=== PATIENT | female | born 1945 | race Caucasian/White ===

== ENCOUNTER 2019-02-24 15:30 | Emergency (ER) | payer MEDICARE, OTHER ==
--- NOTE | 2019-02-24 15:49 | EDM.PDOC ---
ED HPI GENERAL MEDICAL PROBLEM - General Chief Complaint: General Stated Complaint: chest pain Time Seen by Provider: 02/24/19 15:45 Source of Information: Reports: Patient, Old Records, RN History Limitations: Reports: No Limitations - History of Present Illness INITIAL COMMENTS - FREE TEXT/NARRATIVE: 73 yo female presents with a 2 d hx of sternal pain. Sx's worse with movement of her torso, deep breathing, or coughing. No fever, calf pain, nausea, injury history, diaphoresis or SOB. Took ibuprofen 400 mg about 2 hrs before arrival. Onset: Gradual Onset Date: 02/22/19 Duration: Day(s):, Constant Location: Reports: Chest Quality: Reports: Dull Severity: Moderate Improves with: Reports: Rest Worsens with: Reports: Movement Context: Reports: Other (see HPI) Associated Symptoms: Reports: Chest Pain. 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 - Related Data Allergies Allergy/AdvReac Type Severity Reaction Status Date / Time celecoxib [From Celebrex] Allergy Swelling Verified 02/24/19 16:12 codeine Allergy Nausea Verified 02/24/19 16:12 rofecoxib [From Vioxx] Allergy Swelling Verified 02/24/19 16:12 Home Meds: Home Meds Atenolol [Tenormin] 02/24/19 [History] Escitalopram [Lexapro] 02/24/19 [History] Lisinopril 02/24/19 [History] Potassium Chloride 02/24/19 [History] amLODIPine [Norvasc] 02/24/19 [History] hydroCHLOROthiazide [Hydrochlorothiazide] 02/24/19 [History] ED ROS GENERAL - Review of Systems Review Of Systems: See Below Constitutional: Reports: No Symptoms HEENT: Reports: No Symptoms Respiratory: Reports: No Symptoms Cardiovascular: Reports: Chest Pain (sternal). Denies: Dyspnea on Exertion, Edema, Orthopnea, Palpitations, Syncope Endocrine: Reports: No Symptoms GI/Abdominal: Reports: No Symptoms : Reports: No Symptoms Musculoskeletal: Reports: No Symptoms Skin: Reports: No Symptoms Neurological: Reports: No Symptoms Psychiatric: Reports: No Symptoms ED EXAM, GENERAL - Physical Exam Exam: See Below Exam Limited By: No Limitations General Appearance: Alert, WD/WN, No Apparent Distress Eye Exam: Bilateral Eye: Normal Inspection Ears: Normal External Exam, Normal Canal, Hearing Grossly Normal, Normal TMs Ear Exam: Bilateral Ear: Auricle Normal, Canal Normal Nose: Normal Inspection, No Blood Throat/Mouth: Normal Inspection, Normal Lips, Normal Oropharynx, Normal Voice, No Airway Compromise Head: Atraumatic, Normocephalic Neck: Normal Inspection Respiratory/Chest: No Respiratory Distress, Lungs Clear, Normal Breath Sounds, No Accessory Muscle Use, Other (parasternal tenderness over costochondral jxn bilat). No: Chest Non-Tender Cardiovascular: Regular Rate, Rhythm, No Edema GI/Abdominal: Normal Bowel Sounds, Soft, Non-Tender, No Distention Back Exam: Normal Inspection. No: CVA Tenderness (R), CVA Tenderness (L) Extremities: Normal Inspection, Normal Range of Motion, Non-Tender, No Pedal Edema Neurological: Alert, Oriented, CN II-XII Intact, Normal Cognition, No Motor/ Sensory Deficits Psychiatric: Normal Affect, Normal Mood Skin Exam: Warm, Dry, Intact, Normal Color, No Rash EKG INTERPRETATION EKG Date: 02/24/19 Time: 15:40 Rhythm: NSR Rate (Beats/Min): 58 [place]: Normal P-Wave: Present QRS: Normal ST-T: Normal QT: Normal Comparison: NA - No Prior EKG Course - Vital Signs Last Recorded V/S: Last Vital Signs Temp 36.5 C 02/24/19 16:06 Pulse 52 L 02/24/19 16:27 Resp 16 02/24/19 16:06 BP 139/82 02/24/19 16:27 Pulse Ox 94 L 02/24/19 16:27 - Orders/Labs/Meds Orders: Active Orders 24 hr Category Date Time Status Cardiac Monitoring [RC] .As Directed Care 02/24/19 15:32 Active EKG Documentation Completion [RC] ASDIRECTED Care 02/24/19 15:32 Active EKG 12 Lead [EK] Routine Ther 02/24/19 15:32 Ordered Labs: Laboratory Tests 02/24/19 Range/Units 16:14 Troponin I 0.035 (0.000-0.056) ng/mL Meds: Medications Discontinued Medications Generic Name Dose Route Start Last Admin Trade Name Freq PRN Reason Stop Dose Admin Acetaminophen 1,000 mg 02/24/19 15:58 02/24/19 16:09 Tylenol Extra Strength PO 02/24/19 15:59 1,000 mg ONETIME ONE Administration Departure - Departure Time of Disposition: 16:45 Disposition: Home, Self-Care 01 Condition: Good Clinical Impression: Costochondritis - Discharge Information *PRESCRIPTION DRUG MONITORING PROGRAM REVIEWED*: No *COPY OF PRESCRIPTION DRUG MONITORING REPORT IN PATIENT JENNY: No Referrals: Radha Posada MD [Primary Care Provider] - Forms: ED Department Discharge Additional Instructions: Ibuprofen 400 mg every 6 hrs with food as needed. Add acetaminophen up to 1000 mg every 6 hrs for more pain relief. Recheck later in the week with your provider. Return if worse or if SOB, nausea, or diaphoresis occurs, or radiation to your jaw or shoulders. - My Orders Last 24 Hours: My Active Orders 02/24/19 15:32 Cardiac Monitoring [RC] .As Directed EKG Documentation Completion [RC] ASDIRECTED EKG 12 Lead [EK] Routine - Assessment/Plan Last 24 Hours: My Active Orders 02/24/19 15:32 Cardiac Monitoring [RC] .As Directed EKG Documentation Completion [RC] ASDIRECTED EKG 12 Lead [EK] Routine
[2019-02-24] MEDS ORDERED: Acetaminophen 500 MG Tab PO ONE (15:58)
== END 2019-02-24 17:06 | disposition home or self-care (01) ==
LOC: JP.ED 15:30
DX: M94.0 Chondrocostal junction syndrome [Tietze] (principal); Z88.5 Allergy status to narcotic agent; Z79.899 Other long term (current) drug therapy
CPT/HCPCS: 36415; 84484; 93005; 99284; A9270; 93010; 99283

== ENCOUNTER 2021-12-03 21:54 | Inpatient (IN) | payer MEDICARE, OTHER ==
[2021-12-04] MEDS ORDERED: Ondansetron 4 MG/2 ML SDV IVPUSH ONE (00:58)
[2021-12-04] MEDS ORDERED: Sodium Chloride 0.9% 10 ML Syringe FLUSH PRN (00:58)
[2021-12-04] MEDS ORDERED: Sodium Chloride 0.9% 1,000 ML IV SCH (02:00)
[2021-12-04] MEDS ORDERED: metroNIDAZOLE/Normal Saline 500 MG in Premix Bag 1 BAG IV SCH (02:00)
[2021-12-04] MEDS ORDERED: Ciprofloxacin in D5W 400 MG in Premix Bag 1 BAG IV SCH ×2 (02:00)
[2021-12-04] MEDS ORDERED: Acetaminophen 325 MG Tab PO ONE (02:10)
[2021-12-04] MEDS ORDERED: diphenhydrAMINE 50 MG/ML SDV IVPUSH ONE (02:29)
[2021-12-04] MEDS ORDERED: Apixaban 5 MG Tab PO ONE (02:46)
[2021-12-04] MEDS ORDERED: Atenolol 25 MG Tab PO ONE (02:46)
[2021-12-04 07:04] LABS: CORONAVIRUS COVID-19 NAA NEGATIVE (NEGATIVE)
[2021-12-04] MEDS ORDERED: Acetaminophen 325 MG Tab PO PRN (08:23)
[2021-12-04] MEDS ORDERED: Magnesium Hydroxide 400 MG/5 ML Susp 30 ML Cup PO PRN (08:23)
[2021-12-04] MEDS ORDERED: Acetaminophen/HYDROcodone 325-5 MG Tab PO PRN (08:23)
[2021-12-04] MEDS ORDERED: Temazepam 15 MG Cap PO PRN (08:23)
[2021-12-04] MEDS ORDERED: Ondansetron 4 MG Tab.DIS PO PRN (08:23)
[2021-12-04] MEDS: metroNIDAZOLE/Normal Saline 500 MG in Premix Bag 1 BAG IV SCH ×2 (09:59→18:10)
[2021-12-04] MEDS: Sodium Chloride 0.9% 1,000 ML IV SCH ×2 (11:15→19:57)
[2021-12-04] MEDS: Potassium Chloride 20 MEQ Tab.ER PO SCH ×2 (11:15→17:22)
[2021-12-04] MEDS: Escitalopram 10 MG Tab PO SCH (13:41)
[2021-12-04] MEDS ORDERED: Non-Formulary Medication 1 Each (Melatonin [Melatonin] 10 MG Cap) PO PRN (14:15)
[2021-12-04] MEDS ORDERED: Melatonin 3 MG Tab PO PRN (14:58)
[2021-12-04] MEDS: amLODIPine 5 MG Tab PO SCH (15:19)
[2021-12-04] MEDS: Lisinopril 20 MG Tab PO SCH (15:19)
[2021-12-04] MEDS ORDERED: ATENOLOL 100 MG PO SCH (21:00)
[2021-12-04] MEDS ORDERED: Apixaban 5 MG Tab PO SCH (21:00)
[2021-12-04] MEDS ORDERED: atorvaSTATin 20 MG Tab PO SCH (21:00)
[2021-12-04] MEDS ORDERED: Atenolol 25 MG Tab PO SCH (21:00)
[2021-12-04] MEDS ORDERED: Non-Formulary Medication 1 Each (Simvastatin [Simvastatin] 40 MG Tablet) PO SCH (21:00)
[2021-12-05] MEDS: metroNIDAZOLE/Normal Saline 500 MG in Premix Bag 1 BAG IV SCH ×2 (02:27→09:28)
[2021-12-05] MEDS: Lisinopril 20 MG Tab PO SCH (08:09)
[2021-12-05] MEDS: Potassium Chloride 20 MEQ Tab.ER PO SCH (08:10)
[2021-12-05] MEDS: Escitalopram 10 MG Tab PO SCH (08:10)
[2021-12-05] MEDS: amLODIPine 5 MG Tab PO SCH (08:10)
[2021-12-05] MEDS ORDERED: Hydrochlorothiazide 25 MG Tab PO SCH (09:00)
[2021-12-05] MEDS ORDERED: Escitalopram 10 MG Tab PO SCH (09:00)
[2021-12-05] MEDS ORDERED: Aspirin 81 MG Tab.EC PO SCH (09:00)
[2021-12-08 01:08] LABS: ADENOVIRUS F 40/41 Not Detected (Not Detected); ASTROVIRUS Not Detected (Not Detected); C DIFFICILE TOXIN A/B Not Detected (Not Detected); CAMPYLOBACTER Not Detected (Not Detected); CRYPTOSPORIDIUM Not Detected (Not Detected); CYCLOSPORA CAYETANENSIS Not Detected (Not Detected); ENTAMOEBA HISTOLYTICA Not Detected (Not Detected); ENTEROAGGREGATIVE E COLI Not Detected (Not Detected); ENTEROPATHOGENIC E COLI Not Detected (Not Detected); ENTEROTOXIGENIC E COLI Not Detected (Not Detected); GIARDIA LAMBLIA Not Detected (Not Detected); NOROVIRUS GI/GII Not Detected (Not Detected); PLESIOMONAS SHIGELLOIDES Not Detected (Not Detected); ROTAVIRUS A Not Detected (Not Detected); SALMONELLA Not Detected (Not Detected); SAPOVIRUS Not Detected (Not Detected); SHIGA-TOXIN-PRODUCING E COLI Not Detected (Not Detected); SHIGELLA/ENTEROINVASIVE E COLI Not Detected (Not Detected); VIBRIO Not Detected (Not Detected); VIBRIO CHOLERAE Not Detected (Not Detected); YERSINIA ENTEROCOLITICA Not Detected (Not Detected)
== END 2021-12-05 15:05 | disposition home or self-care (01) | DRG 392 ==
LOC: JP.ED 21:54 → JP.ICU 12-04 08:14
PROVIDERS: ADMIT Internal Medicine; ATTEND Internal Medicine
DX: A09 Infectious gastroenteritis and colitis, unspecified (principal); E87.6 Hypokalemia; A04.9 Bacterial intestinal infection, unspecified; E86.0 Dehydration; H91.90 Unspecified hearing loss, unspecified ear; I48.91 Unspecified atrial fibrillation; I10 Essential (primary) hypertension; E78.5 Hyperlipidemia, unspecified; Z88.8 Allergy status to other drugs, medicaments and biological substances; F32.A Depression, unspecified; Z96.653 Presence of artificial knee joint, bilateral; Z85.3 Personal history of malignant neoplasm of breast; Z79.899 Other long term (current) drug therapy; Z79.82 Long term (current) use of aspirin; Z87.440 Personal history of urinary (tract) infections; Z88.1 Allergy status to other antibiotic agents; Z88.5 Allergy status to narcotic agent; Z79.01 Long term (current) use of anticoagulants; Z98.49 Cataract extraction status, unspecified eye; Z90.89 Acquired absence of other organs; Z90.710 Acquired absence of both cervix and uterus; Z98.890 Other specified postprocedural states; Z90.10 Acquired absence of unspecified breast and nipple; Z20.822 Contact with and (suspected) exposure to COVID-19
CPT/HCPCS: 0241U; 36415; 74176; 80048; 80053; 82272; 83605; 85025; 85610; 85730; 87046; 87493; 87899; 89055; 96365; 96367; 96375; 99283; 99285-25; A9270-GY; J0456; J0744; J1200; J2405; J3490; J7030